=== PATIENT | female | born 1940 | race African-American/Black ===

== ENCOUNTER 2018-03-12 17:09 | Emergency (ER) | payer OTHER ==
[~2018-03-12] VITALS: Ht 162.6 cm; Wt 84.4 kg
--- NOTE | 2018-03-12 17:10 | NUR ---
PT BIB [facility] 80 FROM DAUGHTER'S HOUSE,NOTED TO BE CONFUSED, PT STATED SHE CAME TO VISIT HER ROSS AIKEN 12NOON DAUGTHER NOTICE THE PT IS SLIGHTLY CONFUSED AND HAVING SLURRED SPEECH. PT IS AAOX3, NOT IN RESPIRATORY DISTRESS, HOOKED TO MONITOR, SEEN AND EXAMINED BY DR. HUNTER. WILL CONTINUE TO MONITOR.
--- NOTE | 2018-03-12 17:19 | NUR ---
called tele stroke hotline
--- NOTE | 2018-03-12 17:22 | NUR ---
PT IS WHEELED TO CT SCAN VIA ACLS PROTOCOL.
[2018-03-12] MEDS ORDERED: IOHEXOL-350 100 ML VIAL IV ONE (17:23)
[2018-03-12] MEDS ORDERED: IV NS 0.9% 250 ML IV ONE (17:23)
[2018-03-12] MEDS ORDERED: CT SWABBABLE VALVE TRANS SET 1 EA INFUS.SET MC ONE (17:23)
[2018-03-12 17:29] LABS: BASOPHILS % (AUTO) 0.6 % (0.0-2.0); EOSINOPHILS % (AUTO) 1.5 % (0.0-6.0); HEMATOCRIT 42 % (33-45); LYMPHOCYTES # (AUTO) 1.8 /CMM (0.8-4.8); MEAN CORPUSCULAR HGB CONC 34 g/dl (31.0-36.0); MEAN CORPUSCULAR VOLUME 92 fL (82-100); MONOCYTES # (AUTO) 0.6 /CMM (0.1-1.30); MONOCYTES % (AUTO) 13.9 % (2.0-12.0); NEUTROPHILS # (AUTO) 2.1 /CMM (1.8-8.9); PLATELET COUNT (AUTO) 149 /CMM (150-450); RED BLOOD CELL COUNT(AUTO) 4.55 MIL/uL (4.0-5.2); WHITE BLOOD COUNT (AUTO) 4.6 K/uL (4.3-11.0)
[2018-03-12 17:34] LABS: CALCIUM, SERUM 8.6 mg/dL (8.5-10.1); CARBON DIOXIDE 29 mmol/L (21-32); CHLORIDE 106 mmol/L (98-107); CREATININE 0.8 mg/dL (0.6-1.3); GLUCOSE 109 mg/dL (74-106); POTASSIUM 3.8 mmol/L (3.5-5.1); SODIUM SERUM 138 mmol/L (136-145); UREA NITROGEN, BLOOD 15 mg/dL (7-18)
[2018-03-12 17:39] LABS: CHOLESTEROL 200 mg/dL (<200); HDL CHOLESTEROL 69 mg/dL (40-60); LDL 118 mg/dL (0-99); TRIGLYCERIDES 68 mg/dL (30-150)
[2018-03-12] MEDS ORDERED: NICARDIPINE IN DEXTROSE,ISO-OS 200 ML IV PRN (18:30)
[2018-03-12] MEDS ORDERED: LEVETIRACETAM (500MG) 1,000 MG in IV NS 0.9% 100 ML IV SCH (18:30)
--- NOTE | 2018-03-12 18:40 | NUR ---
NICARDIPINE DRIP PREPARED AT BEDSIDE FOR BP >140SBP, DR. HUNTER AWARE PT LATEST BP IS 146/72.
[2018-03-12] MEDS ORDERED: NICARDIPINE IN DEXTROSE,ISO-OS 200 ML IV ONE (18:46)
--- NOTE | 2018-03-12 19:20 | NUR ---
REPORT GIVEN TO BALWINDER GIVENS FOR [facility].
--- NOTE | 2018-03-12 20:28 | NUR ---
called [facility] multiple and multiple times for transfer updates. Was told each time that they are waiting on bed assignment. Suggested that they transfer patient to ED at [facility] and keep them until the ICU bed was ready and to allow the neurosurgeon to asses the pt. Was told that they would call back.
--- NOTE | 2018-03-12 20:32 | NUR ---
Received call from [facility] web marketing analyst Viola and was told this pt has been accepted at [facility]. Pt is assigned to ICU room #: 5105. Number for report is [phone]. The accepting MD is Dr. Santiago. [facility] transportation broker will arrive at 0845.
[2018-03-12 21:45] VITALS: BP 136/77
--- NOTE | 2018-03-12 22:03 | NUR ---
REPORT GIVEN TO CLAIR AT [facility]
== END 2018-03-12 22:19 ==
LOC: ER 17:13
DX: I60.8 Other nontraumatic subarachnoid hemorrhage (principal); I10 Essential (primary) hypertension; G93.9 Disorder of brain, unspecified; D69.6 Thrombocytopenia, unspecified; E78.5 Hyperlipidemia, unspecified; R56.9 Unspecified convulsions; Z86.73 Personal history of transient ischemic attack (TIA), and cerebral infarction without residual deficits; Z88.0 Allergy status to penicillin
CPT/HCPCS: 36415; 70450; 70496; 70498; 71045; 80048; 80061; 82962; 84484; 85025; 85730; 93005; 96365; 99285; A4606; J1953; J7030; J7050; Q9967; Z7610